=== PATIENT | female | born 1940 | race Caucasian/White ===

== ENCOUNTER → 2022-03-02 15:35 | Outpatient (CLI) | payer MEDICARE, SELFPAY ==
--- NOTE | 2022-03-02 | DI.RAD_ITS ---
Exam(s) XR SACROILIAC JOINTS EXAM: XR SACROILIAC JOINTS CLINICAL HISTORY: RIGHT SACROILIAC JOINT PAIN--M53.3. TECHNIQUE: 2D digital imaging was performed. COMPARISON: No exams were available for comparison FINDINGS: 3 views No evidence of obvious sacral fracture. Sacroiliac joints appear unremarkable. No radiographic evid ence of sacroiliitis nor ankylosis of the SI joints. Visualized hips appear unremarkable. IMPRESSION: Unremarkable appearing sacroiliac joints. DATA REPOSITORY: RADIATION DOSE DELIVERED:
== END ==
PROVIDERS: PCP Internal Medicine; Visit Provider Family Medicine
DX: M53.3 Sacrococcygeal disorders, not elsewhere classified (principal)
CPT/HCPCS: 72202

== ENCOUNTER 2022-04-16 01:13 | Outpatient (RCR) | payer MEDICARE, SELFPAY ==
--- OUTSIDE RECORDS SUMMARY | 2022-04-16 01:17 | XMS_ITS | Encounter Summary ---
:1940 Author Organization [facility] Address [address] [place] [address] Care Team Providers Name Role Phone Hayde Swan MD Primary Care Provider Encounter Details Date Type Department Care Team Description 03/06/2012 Results Only [facility] Yeison Olguin MD Laboratory Services - [address] [place] [address] [address] [place] [address] [phone] Social History Tobacco Use Types Packs/Day Years Used Date Never Assessed Sex Assigned at Date Recorded Not on file documented as of this encounter Plan of Treatment Not on filedocumented as of this encounter Procedures Procedure Name Priority Date/Time Associated Diagnosis Comme nts SURGICAL PATHOLOGY Routine 03/06/2012 0:00 EDT Re sults for this procedure are i n the results section. documented in this encounter Results SURGICAL PATHOLOGY (03/06/2012 0:00 EDT) Pathology Report: SURGICAL PATHOLOGY REPORT [facility] Reports generated via electronic interface contain maurice ginal data; LAB however they are lacking the format of the original re port. Caution should be taken when reading/interpreting unfo rmatted reports. Name: ? SALLIE HENLEY ? Accession #: ? [id number] ? : ? 1940 (Age: 71) ??F ? Collect Date: ? 03/06/2012 ? Location: ? [facility] ? Receive Date: ? 012 ? Provider: YEISON OLGUIN MD Copy to: HAYDE SWAN MD ? Final Pathologic Diagnosis: ? Ileocecal valve, biopsy: 1. ?Fragment of sessile serrated adenoma (one piece). 2. ? Colonic mucosa with surface hyperplastic gonzalez ge (two pieces. Document reviewed and electronically signed by: Debbie Castañeda MD Report ??Date: 03/08/2012 14:06 By the signature above, the attending physician certif ies that he/she has personally conducted a gross and/or microscopic examin ation of the described specimens and rendered or confirmed the above diagnosi s. Specimen(s) Received: ? polyp ileocecal valve Clinical History: ? Colorectal screen Gross Description: ? Received in formalin labelled Karishma Henley and ? polyp ileocecal valve are three pink-messina ir regular soft tissues ranging from 0.1 x 0.1 x 0.1 cm to 0.3 x 0.2 x 0.2 cm. ??Submitted in toto in a single cassette. ??(Emiliano Patel)/jaent End of Report Specimen Performing Organization Address City/State/ZIP Code Phon e Number [facility] [address] [place] [address] SERVICES [facility] [address] [place] [address] documented in this encounter Visit Diagnoses Not on filedocumented in this encounter Care Teams Backup Sawyer Relationship Specialty Start Date End Date Hayde Swan MD PCP - General 03/06/[address] [phone] documented as of this encounter
--- OUTSIDE RECORDS SUMMARY | 2022-04-16 01:17 | XMS_ITS | Encounter Summary ---
:1940 Author Organization [facility] Address [address] [place] [address] Care Team Providers Name Role Phone Unavailable Primary Care Provider Unavailable Encounter Details Date Type Department Care Team Description 08/03/1999 Results Only [facility] - Hayde Harper MD conversion [address] [place] [phone] (Wo rk) Social History Tobacco Use Types Packs/Day Years Used Date Never Assessed Sex Assigned at Date Recorded Not on file documented as of this encounter Plan of Treatment Not on filedocumented as of this encounter Procedures Procedure Name Priority Date/Time Associated Diagnosis Comme [facility] CYTOPATHOLOGY Routine 08/03/1999 11:36 EST Result s for this procedure are i n the results section . documented in this encounter Results CYTOPATHOLOGY (08/03/1999 11:36 EST) Pathology Report: CYTOPATHOLOGY REPORT [facility] Reports generated via electronic interface contain maurice ginal data; however they are lacking the format of the original re port. Caution should be taken when reading/interpreting unfo rmatted reports. Name: ? MILLI HENLEY ? Accession #: ? [id number] : ? 1940 (Age: 59) ??F ?Collect Date: ? 07/15 Location: ?Receive Date: ? 08/03/1999 Provider: ?HAYDE SAWN MD Copy to: ?HAYDE SWAN MD ? Specimen/Source: ?Pap Smear (One Slide) Last Menstrual Period: ? GYNECOLOGIC ??CYTOPATHOLOG Y ??REPORT Name: CONCEPCIÓNKARISHMA ? FA HC : 1940 ?? 59Y F ?Client ID: [id number] SS#: [id number] ? Ac cession #: [id number] Clinician: HAYDE SWAN MD ?? Location: [facility] ??Copy to: ?? Specimen: ?Pap Smear (One Slide) ? Source: Cervix/Endocervix ?Collected: 07/30/99 ? Received: 08/03/1999 ?LMP: 1983 ? Hormone Therapy: Yes ? : No ? Radiation Therapy: No ?? Post : No ?Chemotherapy: No ?IUD: No ? Prev Abnormal Pap: No ?? Clinical Hx: ?(Blank thornton indicate information not provided on requisition) SPECIMEN ADEQUACY: ? Satisfactory For Evaluation ?? GENERAL CATEGORIZATION: ? BENIGN CELLULAR CHANGES ?? DESCRIPTIVE DIAGNOSIS: ? Reactive Cellular Changes Associated With Infla mmation Present ? (Includes Repair) ? Reviewed And Electronically Signed By: ? Rae saldana M.D. ? Report Date : ?? 08/10/1999 [facility] Archived Tests - Final Diagnosis Text Field: Clinical History : ? Document reviewed and electronically signed by: ? Conversion ? Report Date: ??08/10/1999 00:00 End of Report Specimen Performing Organization Address City/State/ZIP Code Phon e Number [facility] [address] [place] [address] SERVICES [facility] [address] [place] [address] documented in this encounter Visit Diagnoses Not on filedocumented in this encounter
--- OUTSIDE RECORDS SUMMARY | 2022-04-16 01:17 | XMS_ITS | Encounter Summary ---
:1940 Author Organization [facility] Address [address] [place] [address] Care Team Providers Name Role Phone Unavailable Primary Care Provider Unavailable Encounter Details Date Type Department Care Team Description 08/29/2000 Results Only [facility] - Hayde Harper MD conversion [address] [place] [phone] (Wo rk) Social History Tobacco Use Types Packs/Day Years Used Date Never Assessed Sex Assigned at Date Recorded Not on file documented as of this encounter Plan of Treatment Not on filedocumented as of this encounter Procedures Procedure Name Priority Date/Time Associated Diagnosis Comme [facility] CYTOPATHOLOGY Routine 08/29/2000 0:00 EST Results for this procedure are i n the results section . documented in this encounter Results CYTOPATHOLOGY (08/29/2000 0:00 EST) Pathology Report: CYTOPATHOLOGY REPORT [facility] Reports generated via electronic interface contain maurice ginal data; however they are lacking the format of the original re port. Caution should be taken when reading/interpreting unfo rmatted reports. Name: ? MILLI HENLEY ? Accession #: ? [id number] : ? 1940 (Age: 60) ??F ?Collect Date: ? 08/11 Location: ? [facility] ? Receive Date : ? 08/31/2000 Provider: ?HAYDE SWAN MD Copy to: ? Specimen/Source: ?Conventional Pap Test, Cer vix/Endocervix Last Menstrual Period: ? 1985 Hormonal/Contraceptive Status: ? Prempro ? SPECIMEN ADEQUACY ? Satisfactory for evaluation. GENERAL CATEGORIZATION ? Benign Cellular Changes DESCRIPTIVE DIAGNOSIS ? Reactive cellular star nges associated with inflammation present (includes repair). ? Document reviewed and electronically signed by: ? SCOTT HICKS MD [facility] ? Report Date: ??09/02/2000 16:46 End of Report Specimen Performing Organization Address City/State/ZIP Code Phon e Number [facility] [address] [place] [address] SERVICES [facility] [address] [place] [address] documented in this encounter Visit Diagnoses Not on filedocumented in this encounter
--- OUTSIDE RECORDS SUMMARY | 2022-04-16 01:17 | XMS_ITS | Encounter Summary ---
:1940 Author Organization [facility] Address [address] [place] [address] Care Team Providers Name Role Phone Unavailable Primary Care Provider Unavailable Encounter Details Date Type Department Care Team Description 12/28/2001 Results Only [facility] - Hayde Harper MD conversion [address] [place] [phone] (Wo rk) Social History Tobacco Use Types Packs/Day Years Used Date Never Assessed Sex Assigned at Date Recorded Not on file documented as of this encounter Plan of Treatment Not on filedocumented as of this encounter Procedures Procedure Name Priority Date/Time Associated Diagnosis Comme [facility] SURGICAL PATHOLOGY Routine 12/28/2001 0:00 EDT Re sults for this procedure are i n the results section. documented in this encounter Results SURGICAL PATHOLOGY (12/28/2001 0:00 EDT) Pathology Report: SURGICAL PATHOLOGY REPORT [facility] Reports generated via electronic interface contain maurice ginal data; LAB however they are lacking the format of the original re port. Caution should be taken when reading/interpreting unfo rmatted reports. Name: ? MILLI HENLEY ? Accession #: ? [id number] ? : ? 1940 (Age: 61) ??F ? Collect Date: ? 12/28/2001 ? Location: ? [facility] ? Receive Date: ? 002 ? Provider: HAYDE SWAN MD Copy to: SHELLEY MCLAIN MD ? Final Pathologic Diagnosis: ? Endometrium, biopsy: 1. ?Detached, s uperficial strips of inactive endometrium with tubal metaplasia. 2. ?Scant fragments of benign endocervica l glands. Document reviewed and electronically signed by: SHELLEY MCLAIN MD Report ??Date: 01/03/2002 15:59 By the signature above, the attending physician certif ies that he/she has personally conducted a gross and/or microscopic examin ation of the described specimens and rendered or confirmed the above diagnosi s. Specimen(s) Received: ? Endometrial bx Clinical History: ? Postmenopausal spotting; on HRT cyclic Gross Description: ? Received in formalin labelled Ducham and endometrial biopsy is 1.5 cc of blood tinged mucous admix ed with fragments of red-brown tissue. ??The specimen is submitted entirely in one cassette. ??(ALBERTO Palma/janet End of Report Specimen Performing Organization Address City/State/ZIP Code Phon e Number [facility] [address] [place] [address] SERVICES [facility] [address] [place] [address] documented in this encounter Visit Diagnoses Not on filedocumented in this encounter
--- OUTSIDE RECORDS SUMMARY | 2022-04-16 01:17 | XMS_ITS | Encounter Summary ---
:1940 Author Organization [facility] Address [address] [place] [address] Care Team Providers Name Role Phone Unavailable Primary Care Provider Unavailable Encounter Details Date Type Department Care Team Description 05/02/2003 Results Only [facility] [place], [employer] conversion [address] [facility] [address] [place] [phone] (Wo rk) Social History Tobacco Use Types Packs/Day Years Used Date Never Assessed Sex Assigned at Date Recorded Not on file documented as of this encounter Plan of Treatment Not on filedocumented as of this encounter Procedures Procedure Name Priority Date/Time Associated Diagnosis Comme [facility] CYTOPATHOLOGY Routine 05/02/2003 0:00 EST Results for this procedure are i n the results section . documented in this encounter Results CYTOPATHOLOGY (05/02/2003 0:00 EST) Pathology Report: CYTOPATHOLOGY REPORT [facility] Reports generated via electronic interface contain maurice ginal data; however they are lacking the format of the original re port. Caution should be taken when reading/interpreting unfo rmatted reports. Name: ? MILLI HENLEY ? Accession #: ? [id number] : ? 1940 (Age: 62) ??F ?Collect Date: ? 04/14 Location: ? [facility] ? Receive Date : ? 05/06/2003 Provider: ?SIMONA MOYA [employer]DER Copy to: ? Specimen/Source: ?ThinPrep Pap Test, Cervix/ Endocervix Last Menstrual Period: ? Menstrual/ Status: ? Post Menopausal Treatment History: ? Miscellaneous treatment: Endometrial bx, post menopaus al bleeding Other: ? HPVA - HPV testing requested if ASC-US on the current ThinPrep Pap test. ? SPECIMEN ADEQUACY ? Satisfactory for Evaluation - transformation zone component present GENERAL CATEGORIZATION ? Negative for Intraepithelial Lesion or Malignan cy ? Document reviewed and electronically signed by: ? KIRIT Melgoza(ASCP) ? Report Date: ??05/10/2003 12:59 End of Report Specimen Performing Organization Address City/State/ZIP Code Phon e Number [facility] [address] [place] [address] SERVICES [facility] [address] [place] [address] documented in this encounter Visit Diagnoses Not on filedocumented in this encounter
--- OUTSIDE RECORDS SUMMARY | 2022-04-16 01:17 | XMS_ITS | Encounter Summary ---
:1940 Author Organization [facility] Address [address] [place] [address] Care Team Providers Name Role Phone Unavailable Primary Care Provider Unavailable Encounter Details Date Type Department Care Team Description 11/16/2001 Results Only [facility] - Hayde Harper MD conversion [address] [place] [phone] (Wo rk) Social History Tobacco Use Types Packs/Day Years Used Date Never Assessed Sex Assigned at Date Recorded Not on file documented as of this encounter Plan of Treatment Not on filedocumented as of this encounter Procedures Procedure Name Priority Date/Time Associated Diagnosis Comme [facility] CYTOPATHOLOGY Routine 11/16/2001 0:00 EDT Results for this procedure are i n the results section . documented in this encounter Results CYTOPATHOLOGY (11/16/2001 0:00 EDT) Pathology Report: CYTOPATHOLOGY REPORT [facility] Reports generated via electronic interface contain maurice ginal data; however they are lacking the format of the original re port. Caution should be taken when reading/interpreting unfo rmatted reports. Name: ? MILLI HENLEY ? Accession #: ? [id number] : ? 1940 (Age: 61) ??F ?Collect Date: ? 06/11/2001 Location: ? [facility] ? Receive Date : ? 11/20/2001 Provider: ?HAYDE SWAN MD Copy to: ? Specimen/Source: ?Conventional Pap Test, Cer vix/Endocervix Last Menstrual Period: ? 1983 Hormonal/Contraceptive Status: ? Prempro ? SPECIMEN ADEQUACY ? Satisfactory for Evaluation - transformation zone component present - air drying artifact/cellular degeneration - obscuring inflammation GENERAL CATEGORIZATION ? Negative for Intraepithelial Lesion or Malignan cy ? Document reviewed and electronically signed by: ? Eleonora Sainz, SCT(ASCP) ? Report Date: ??11/21/2001 22:14 End of Report Specimen Performing Organization Address City/State/ZIP Code Phon e Number [facility] [address] [place] [address] SERVICES [facility] [address] [place] [address] documented in this encounter Visit Diagnoses Not on filedocumented in this encounter
[2022-04-16] MEDS: Denosumab 60 MG/ML SYR SC (10:01)
== END 2022-05-12 23:59 | disposition home or self-care (01) ==
LOC: INF 01:13
PROVIDERS: PCP Family Medicine; Visit Provider Nurse Practitioner Acute Care
DX: M81.0 Age-related osteoporosis without current pathological fracture (principal)
CPT/HCPCS: 96372; J0897

== ENCOUNTER 2022-05-11 18:40 | Outpatient (REF) | payer MEDICARE, SELFPAY ==
[2022-05-11 18:58] LABS: CREATININE 0.8 mg/dL (0.55-1.02); Estimated GFR 73.98 (mL/min/1.73m2)
== END 2022-05-11 18:41 | disposition home or self-care (01) ==
LOC: NCHCN 18:40
PROVIDERS: PCP Family Medicine; Visit Provider Family Medicine
DX: Z00.00 Encounter for general adult medical examination without abnormal findings (principal)
CPT/HCPCS: 82565

== ENCOUNTER 2022-11-15 15:56 | Outpatient (REF) | payer MEDICARE, SELFPAY ==
[2022-11-15 16:23] LABS: Hemoglobin A1C 6.1 % (<5.7)
== END 2022-11-15 15:57 | disposition home or self-care (01) ==
LOC: NCHCN 15:56
PROVIDERS: PCP Family Medicine; Visit Provider Family Medicine
DX: R73.03 Prediabetes (principal)
CPT/HCPCS: 83036

== ENCOUNTER 2023-10-31 05:20 | Outpatient (RCR) | payer MEDICARE, SELFPAY ==
[2023-10-31] MEDS: Denosumab 60 MG/ML SYR SC (11:29)
== END 2023-11-11 23:59 | disposition home or self-care (01) ==
LOC: INF 05:20
PROVIDERS: PCP Family Medicine; Visit Provider Nurse Practitioner Family
DX: M81.0 Age-related osteoporosis without current pathological fracture (principal)
CPT/HCPCS: 96372; J0897

== ENCOUNTER 2023-11-16 07:31 | Emergency (ER) | payer MEDICARE, SELFPAY ==
[2023-11-16] VITALS (128 sets, daily range): BP systolic 120–213; BP diastolic 49–95; PULSE 45–97; RESP 8–31; TEMP 36.6; O2SAT 94–100
--- NOTE | 2023-11-16 07:30 | RT.EKG_ITS ---
APPROVED REPORT Exam: Resting ECG Reason for Exam: chest pain Patient Location: E HR:84 bpm ECG Measurements Heart Rate 84 AXIS TX 177 P 114 QRSd 100 QRS 87 QT 380 T 28 QTc 449 Conclusion Sinus rhythm...normal P axis, V-rate 60- 99 Left atrial enlargement...P, P'>60mS, <-0.15mV V1
--- NOTE | 2023-11-16 07:56 | ED.GENADUL_ITS ---
Discharge Plan Disposition Specific Acute Inpt Facility: [facility] Condition: Stable Discharge Details Chief Complaint: Chest Pain Clinical Impression: Chest pain Primary Care Provider: Hadye Kern ED Provider: Samuel Peralta Home Meds and New Rx's Prescriptions: No Action aspirin 81 mg tablet,delayed release (DR/EC) 81 mg PO DAILY Patient Comments: TAKE 1 TABLET BY MOUTH EVERY DAY rosuvastatin 10 mg tablet 10 mg PO DAILY Patient Comments: TAKE 1 TABLET BY MOUTH EVERY DAY calcium 500 mg tablet 1,300 mg PO DAILY azelastine 137 mcg (0.1 %) aerosol,spray 2 spray INTRANASAL BID Patient Comments: USE 1 TO 2 SPRAYS IN EACH NOSTRIL TWICE DAILY cholecalciferol (vitamin D3) [Vitamin D3] 25 mcg (1,000 unit) tablet 1,000 unit PO DAILY polyethylene glycol 3350 [ClearLax] 17 gram powder in packet 17 g PO DAILY PRN HPI General Mode of arrival: ambulatory . Date/Time Provider Initiated Documentation: 11/16/23 07:31 . Limitations to Documentation: no limitations . Information obtained by: patient . History of Present Illness 83 year old F presents to the emergency department with the chief complaint of chest pain, described as moderate, and is localized to the chest. Patient reports no radiation. and it has been constant. No relieving factors improve symptom(s), No exacerbating factors reported . Patient notes denies fever/chills. Patient did receive the following treatments prior to arrival, none Related Data Home Medications Medication Instructions Recorded Confirmed aspirin 81 mg tablet,delayed 81 mg PO DAILY 11/16/23 11/16/23 release azelastine 137 mcg (0.1 %) nasal 2 spray intranasal BID 11/16/23 11/16/23 spray aerosol calcium 500 mg tablet 1,300 mg PO DAILY 11/16/23 11/16/23 cholecalciferol (vitamin D3) 25 1,000 unit PO DAILY 11/16/23 11/16/23 mcg (1,000 unit) tablet (Vitamin D3) polyethylene glycol 3350 17 gram 17 g PO DAILY PRN 11/16/23 11/16/23 oral powder packet (ClearLax) rosuvastatin 10 mg tablet 10 mg PO DAILY 11/16/23 11/16/23 Allergies Allergy/AdvReac Type Severity Reaction Status Date / Time Sulfa (Sulfonamide Allergy Mild Other (See Verified 11/16/23 07:40 Antibiotics) Comment) General Stated Complaint: Chest Pain HELENE: 2 Review of Systems All systems reviewed & are unremarkable except as noted in HPI and below Constitutional Constitutional: Denies chills, Denies fever(s) and Denies weakness Cardiovascular Cardiovascular: Reports chest pain and Denies dyspnea Respiratory Respiratory: Denies cough and Denies dyspnea Gastrointestinal Gastrointestinal: Denies abdominal pain, Denies nausea and Denies vomiting Musculoskeletal Musculoskeletal: Denies joint swelling Neurologic Neurologic: Denies weakness Exam Const General: no acute distress Orientation: alert HENMT Head: normal to inspection Ears: external ears normal General nose exam: external nose normal Mouth: moist mucous membranes Eyes General: appearance normal, both eyes and all related structures Neck Neck: normal visual inspection Resp Effort & Inspection: normal respiratory effort and able to speak in complete sentences Auscultation: clear to auscultation bilaterally Cardio Jugular venous pressure: no JVD Rate: regular rate Heart Sounds: murmur (systolic best heard at the right sternal border) GI Palpation: soft and nontender Skin General skin exam: no rashes or lesions noted Neuro General: patient alert and patient oriented x3 Extrem General: normal to inspection Psych Mental Status: mental status grossly normal Course Vital Signs Vital signs: Vital Signs Pulse 97 H 11/16/23 07:34 Respiratory Rate 18 11/16/23 07:34 Blood Pressure 201/90 H 11/16/23 07:34 Pulse Oximetry 98 11/16/23 07:34 Pulse 97 H 11/16/23 07:34 Respiratory Rate 18 11/16/23 07:38 Respiratory Effort Normal 11/16/23 07:38 Respiratory Depth Normal 11/16/23 07:38 Respiratory Pattern Normal 11/16/23 07:38 Blood Pressure 201/90 H 11/16/23 07:34 Blood Pressure Position Sitting 11/16/23 07:34 Pulse Oximetry 98 11/16/23 07:34 Oxygen Delivery Method Room Air 11/16/23 07:34 Oxygen Flow Rate 0 11/16/23 07:34 Pain Level 2 11/16/23 07:34 Lab/Test Results Lab/Test Results: Laboratory Tests Range/Units 11/16/23 07:38 APTT Cancelled Medical Decision Making 83-year-old female with a history of hyperlipidemia, comes in with intermittent chest pressure with exertion. She states he had [place] in the summer, and was living in [place] over the winter. She had a stress test done there which showed a moderate reversible distal apical defect suggestive of ischemia, patient has a report with her. She says she was was to have a catheterization in October but had a in the family. 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 She says since being here last 2 weeks she has had intermittent chest pain with exertion. No fevers, no cough, otherwise feels well. She is currently pain- free. Unremarkable exam. Will check a CBC, CMP, troponin, chest x-ray. She has no tearing back pain to suggest dissection, no hypoxia or significant tachycardia and no evidence of DVT on exam to suggest PE. She was also noted to be hypertensive to 200 systolic, no ischemic symptoms will treat with a dose of metoprolol Patient still asymptomatic, labs unremarkable, chest x-ray unremarkable. Will consult with cardiology at [facility] Patient stable and asymptomatic. Spoke with NI Rockwell for the cardiology unit who reviewed the case and recommended increasing aspirin to 243. Given she is asymptomatic do not recommend anticoagulation with heparin or Plavix at this point. They have excepted to their facility for diagnostic catheterization. Accepting provider is Dr. Everton Magallon patient stable and continues to have no symptoms, blood pressure now 140/68. Did confirm with department that they do anticipate her being able to be transferred today but might not be till this evening. Differential Diagnosis Differential Diagnosis: Unstable angina, anxiety, chest wall pain. Medical Records Medical records reviewed: Yes I reviewed the patient's medical records. Imaging Data Radiologic Study: Attestation: I personally reviewed and interpreted this imaging study as follows: Imaging: X-Ray Radiologist's impression: no acute findings Lab Data Lab results reviewed: Yes I reviewed the patient's lab results. ECG Data Attestation: I personally reviewed and interpreted this ECG (s) as follows: Prior ECG tracings: not available for review Interpretation: Sinus rhythm, rate of 84, PA 177 no STEMI ACS Quality:SDOH Health Related Social Needs: No Data to Display PFSH All Active Problems (Updated 11/16/23 @ 11:07 by Samuel Peralta MD) Chest pain (Acute) Social History Smoking/Tobacco Use Status: Never Smoking risk assessment performed?: Yes Alcohol Intake: current Drug use: Never Substance use type: does not use PAWSS Have you Been Recently Intoxicated or Drunk Within the Last 30 days?: No Have you Ever Experienced Previous Episodes of Alcohol Withdrawal?: No Have you ever Experienced Withdrawal Seizures?: No Have you ever Experienced Delirium Tremens(DT)s?: No Have you ever undergone Alcohol Rehabilitation Treatment (i.e, inpt ot outpatient treatment programs)?: No Have you ever Experienced Blackouts?: No Have you ever Combined Alcohol with other Downers within the last 90 days?: No Have you ever Combined Alcohol with any other Substance of Abuse during the last 90 days?: No Result: 0
[2023-11-16 07:59] LABS: Abs Immature Grans 0.02 10^3/uL (0.0-0.06); Absolute Basophil Count 0.02 10^3/uL (0.0-0.2); Absolute Eosinophil Count 0.05 10^3/uL (0.0-0.7); Absolute Lymphocyte Count 1.74 10^3/uL (1.2-3.4); Absolute Monocyte Count 0.45 10^3/uL (0.1-0.8); Absolute Neutrophil Count 4.35 10^3/uL (1.2-6.7); Basophils % 0.3 %; Eosinophils % 0.8 %; HCT 43.6 % (36.0-46.0); HGB 14.2 g/dL (11.2-15.7); Immature Grans % 0.3 %; Lymphocytes % 26.2 %; MCH 30.1 pg (27.0-33.0); MCHC 32.6 % (32.0-36.0); MCV 93 fL (80-95); MPV 10.2 fL (8.0-11.0); Monocytes % 6.8 %; Neutrophils % 65.6 %; Platelet Count 219 10^3/uL (130-400); RBC 4.71 10^6/uL (3.93-5.22); RDW 13.2 % (11.7-14.6); RDW-SD 45.2 fL; WBC 6.63 10^3/uL (4.4-10.8)
[2023-11-16 08:18] LABS: ALT 25 U/L (14-59); AST 20 U/L (15-37); Albumin 4.2 g/dL (3.4-5.0); Alkaline Phosphatase 66 U/L (46-116); Anion Gap 8.9 mmol/L (3-11); BUN 15 mg/dL (7-18); Bilirubin, Total 0.6 mg/dL (0.2-1.0); CO2 29.1 mmol/L (21.0-32.0); CREATININE 0.9 mg/dL (0.55-1.02); Calcium 9.1 mg/dL (8.5-10.1); Chloride 105 mmol/L (98-107); Estimated GFR 63.43 (mL/min/1.73m2); Glucose 142 mg/dL (74-106); Lipase 35 U/L (16-77); Potassium 3.9 mmol/L (3.5-5.1); Sodium 143 mmol/L (136-145); Total Protein 7.8 g/dL (6.4-8.2); Troponin I < 50 ng/L (< or =60)
--- NOTE | 2023-11-16 08:22 | DI.RAD_ITS ---
Exam(s) XR PORTABLE CHEST AP EXAM: XR PORTABLE CHEST AP CLINICAL HISTORY: chest pain TECHNIQUE: 2D digital imaging was performed of the chest. One image was obtained. An AP view was ob tained. COMPARISON: No exams were available for comparison FINDINGS: MEDIASTINUM: Normal. HEART: Normal. PULMONARY VASCULATURE: Normal. LUNGS: Clear. PLEURAL SPACE: No pleural effusion or pneumothorax. BONE:Within normal limits for the patient's age. OTHER FINDINGS:Normal. IMPRESSION: No acute pulmonary findings. DATA REPOSITORY: RADIATION DOSE DELIVERED:
[2023-11-16 08:25] LABS: PTT Activated 24.4 sec (23.6-32.8); Prothrombin Time 10.1 sec (9.1-11.1)
[2023-11-16] MEDS: Metoprolol 25 MG TAB PO (08:44)
[2023-11-16] MEDS: Lisinopril 5 MG TAB PO (10:20)
[2023-11-16] MEDS: Normal Saline Flush 10 ML SYR IVP (10:34)
[2023-11-16 11:01] LABS: Troponin I < 50 ng/L (< or =60)
[2023-11-16] MEDS: Aspirin 81 MG CHEW (11:07)
== END 2023-11-16 20:10 | disposition home or self-care (01) ==
PROVIDERS: Emergency Medicine; Emergency Provider Emergency Medicine; PCP Family Medicine
DX: R07.9 Chest pain, unspecified (principal); E78.5 Hyperlipidemia, unspecified; Z79.82 Long term (current) use of aspirin
CPT/HCPCS: 36415; 80053; 83690; 93005; 99285; 71045; 83735; 84484; 85025; 85610; 85730; 93010

== ENCOUNTER 2023-11-28 09:51 | Emergency (ER) | payer MEDICARE, SELFPAY ==
[2023-11-28 09:55] VITALS: BP 155/60; PULSE 80; TEMP 36.8; O2SAT 96
--- NOTE | 2023-11-28 10:00 | DI.US_ITS ---
Exam(s) US SOFT TISSUE EXTREMITY EXAM: US SOFT TISSUE EXTREMITY CLINICAL HISTORY: ?hematoma vs pseudoaneurysm. TECHNIQUE: Ultrasound was performed using standard protocol. COMPARISON: No exams were available for comparison FINDINGS: Sonographic assessment utilizing grayscale and color Doppler imaging was performed and targeted to th e area of clinical concern. There is a circumscribed collection corresponding to the palpable abnormality at the distal wrist. T here is no vascular flow within it. Findings are consistent with a hematoma. Measures 4.8 x 0.6 x 2 .1 cm. IMPRESSION: 4.8 centimeter maximal dimension hematoma at the distal wrist. Findings called to Dr. Peralta of the emergency department. DATA REPOSITORY:
--- NOTE | 2023-11-28 10:06 | ED.GENADUL_ITS ---
Discharge Plan Disposition Patient Disposition: Home Condition: Stable Discharge Details Clinical Impression: Hematoma Primary Care Provider: Hayde Kern ED Provider: Samuel Peralta Home Meds and New Rx's Prescriptions: Continued aspirin 81 mg tablet,delayed release (DR/EC) 81 mg PO DAILY Patient Comments: TAKE 1 TABLET BY MOUTH EVERY DAY rosuvastatin 10 mg tablet 10 mg PO DAILY Patient Comments: TAKE 1 TABLET BY MOUTH EVERY DAY calcium 500 mg tablet 1,300 mg PO DAILY azelastine 137 mcg (0.1 %) aerosol,spray 2 spray INTRANASAL BID Patient Comments: USE 1 TO 2 SPRAYS IN EACH NOSTRIL TWICE DAILY cholecalciferol (vitamin D3) [Vitamin D3] 25 mcg (1,000 unit) tablet 1,000 unit PO DAILY polyethylene glycol 3350 [ClearLax] 17 gram powder in packet 17 g PO DAILY PRN losartan 50 mg tablet 37 mg PO DAILY Patient Comments: TAKE 1 TABLET BY MOUTH EVERY DAY amlodipine 2.5 mg tablet 2.5 mg PO DAILY Discharge Instructions Additional Instructions: Your ultrasound did not show any evidence of a pseudoaneurysm. Use the compression wrap until hematoma is resolved. Follow-up as scheduled with your cardiology team If you feel more ill or have severe worsening pain or any symptoms of high fevers return to the emergency department for reevaluation HPI General Mode of arrival: ambulatory . Date/Time Provider Initiated Documentation: 11/28/23 09:53 . Limitations to Documentation: no limitations . Information obtained by: patient . History of Present Illness 83 year old F presents to the emergency department with the chief complaint of Right wrist swelling, described as mild, Patient started experiencing this week(s) (1) and it has been constant. No relieving factors improve symptom(s), No exacerbating factors reported . Patient notes no other symptoms.. Patient did receive the following treatments prior to arrival, none Related Data Home Medications Medication Instructions Recorded Confirmed aspirin 81 mg tablet,delayed 81 mg PO DAILY 11/16/23 11/28/23 release azelastine 137 mcg (0.1 %) nasal 2 spray intranasal BID 11/16/23 11/28/23 spray aerosol calcium 500 mg tablet 1,300 mg PO DAILY 11/16/23 11/28/23 cholecalciferol (vitamin D3) 25 1,000 unit PO DAILY 11/16/23 11/28/23 mcg (1,000 unit) tablet (Vitamin D3) polyethylene glycol 3350 17 gram 17 g PO DAILY PRN 11/16/23 11/28/23 oral powder packet (ClearLax) rosuvastatin 10 mg tablet 10 mg PO DAILY 11/16/23 11/28/23 amlodipine 2.5 mg tablet 2.5 mg PO DAILY 11/28/23 11/28/23 losartan 50 mg tablet 37 mg PO DAILY 11/28/23 11/28/23 Allergies Allergy/AdvReac Type Severity Reaction Status Date / Time Sulfa (Sulfonamide Allergy Mild Other (See Verified 11/28/23 09:57 Antibiotics) Comment) General Stated Complaint: Vascular HELENE: 3 Review of Systems All systems reviewed & are unremarkable except as noted in HPI and below Constitutional Constitutional: Denies chills, Denies fever(s) and Denies weakness Cardiovascular Cardiovascular: Denies chest pain and Denies dyspnea Respiratory Respiratory: Denies cough and Denies dyspnea Gastrointestinal Gastrointestinal: Denies abdominal pain, Denies nausea and Denies vomiting Neurologic Neurologic: Denies weakness Exam Const General: no acute distress Orientation: alert HENSD Head: normal to inspection Ears: external ears normal General nose exam: external nose normal Mouth: moist mucous membranes Eyes General: appearance normal, both eyes and all related structures Neck Neck: normal visual inspection Resp Effort & Inspection: normal respiratory effort and able to speak in complete sentences Cardio Rate: regular rate Skin General skin exam: no rashes or lesions noted Neuro General: patient alert and patient oriented x3 Extrem General: full ROM and capillary refill normal Psych Mental Status: mental status grossly normal Course Vital Signs Vital signs: Vital Signs Temperature 36.8 C 11/28/23 09:55 Pulse 80 11/28/23 09:55 Blood Pressure 155/60 H 11/28/23 09:55 Pulse Oximetry 96 11/28/23 09:55 Temperature 36.8 C 11/28/23 09:55 Temperature Source Temporal Artery Scan 11/28/23 09:55 Pulse 80 11/28/23 09:55 Respiratory Effort Normal, Non-Labored 11/28/23 10:00 Blood Pressure 155/60 H 11/28/23 09:55 Blood Pressure Position Sitting 11/28/23 09:55 Pulse Oximetry 96 11/28/23 09:55 Oxygen Delivery Method Room Air 11/28/23 09:55 Oxygen Flow Rate 0 11/28/23 09:55 Medical Decision Making 83-year-old female who underwent diagnostic cath last week, comes in with continued right wrist swelling and mild discomfort where they did the insertion site for the cath. Denies any fevers, no drainage from the site. She otherwise feels well. She has a 2 x 3 cm hematoma in the right radial artery just proximal to the wrist, has intact sensation and cap refill. Suspect hematoma versus pseudoaneurysm, will obtain ultrasound to further evaluate Ultrasound shows no evidence of pseudoaneurysm appears to be a simple hematoma. Patient is stable, advised to use compression, she has follow-up with cardiology next week and return precautions given Differential Diagnosis Differential Diagnosis: Hematoma, pseudoaneurysm Medical Records Medical records reviewed: Yes I reviewed the patient's medical records. Imaging Data Radiologic Study: Attestation: I personally reviewed and interpreted this imaging study as follows: Imaging: Ultrasound Radiologist's impression: Phone conversation with Dr. ugarte from radiology no evidence of pseudoaneurysm appears to be simple hematoma Quality:SDOH Health Related Social Needs: Health related social needs risk of homeless PFSH All Active Problems (Updated 11/28/23 @ 10:59 by Samuel Peralta MD) Hematoma (Acute) Chest pain (Acute) Social History Smoking/Tobacco Use Status: Never Smoking risk assessment performed?: Yes Alcohol Intake: current Alcohol Intake frequency: a few times a week Drug use: Never Substance use type: does not use Do you feel safe at home: Yes Do you feel safe in your relationship?: Yes PAWSS Have you Been Recently Intoxicated or Drunk Within the Last 30 days?: No Have you Ever Experienced Previous Episodes of Alcohol Withdrawal?: No Have you ever Experienced Withdrawal Seizures?: No Have you ever Experienced Delirium Tremens(DT)s?: No Have you ever undergone Alcohol Rehabilitation Treatment (i.e, inpt ot outpatient treatment programs)?: No Have you ever Experienced Blackouts?: No Have you ever Combined Alcohol with other Downers within the last 90 days?: No Have you ever Combined Alcohol with any other Substance of Abuse during the last 90 days?: No Positive Blood Alcohol level on Presentation? [PCS.BAL]: No Evidence of Increased Autonomic Activity (i.e. HR>120, tremor, sweating, agitation, nausea)?: No Result: 0
== END 2023-11-28 11:05 | disposition home or self-care (01) ==
PROVIDERS: Emergency Provider Emergency Medicine; PCP Family Medicine
DX: I97.630 Postprocedural hematoma of a circulatory system organ or structure following a cardiac catheterization (principal); Z79.82 Long term (current) use of aspirin
CPT/HCPCS: 76881; 99284

== ENCOUNTER 2023-12-09 09:00 | Outpatient (RCR) | payer MEDICARE, SELFPAY | END 2023-12-11 23:59 | disposition home or self-care (01) | LOC: CR 09:00 | PROVIDERS: PCP Family Medicine; Visit Provider Internal Medicine Cardiovascular Disease | DX: I20.89 Other forms of angina pectoris (principal) | CPT/HCPCS: S9472 ==

== ENCOUNTER 2023-12-14 09:41 | Outpatient (RCR) | payer MEDICARE, SELFPAY | END 2024-01-11 23:59 | disposition home or self-care (01) | LOC: CR 09:41 | PROVIDERS: PCP Family Medicine; Visit Provider Internal Medicine Cardiovascular Disease | DX: I20.89 Other forms of angina pectoris (principal) | CPT/HCPCS: S9472 ==

== ENCOUNTER 2024-03-28 02:10 | Outpatient (CLI) | payer MEDICARE, SELFPAY ==
--- NOTE | 2024-03-28 07:15 | DI.MRI_ITS ---
Exam(s) MR LUMBAR SPINE WO EXAM: MR LUMBAR SPINE WO CLINICAL HISTORY: Severe low back pain,spondylolisthesis of lumbar,spondylosis, m47.816,m43.1. TECHNIQUE: Multiplanar multisequence MRI of the Lumbar spine was performed. COMPARISON: DX DEXA BONE DENSITY WITH FAMILIA from 12/08/2010 MR MRI LUMBAR SPINE from 02/27/2022 CR XR SACROILIAC JOINTS from 03/02/2022 FINDINGS: Bones: The last intervertebral disc space is designated the L5/S1 level for the numbering purpose of this examination. The vertebral body heights are well maintained. There is grade 1 anterolisthesis of L4 on L5. Mild endplate degenerative signal changes are present. There is also grade 1 anterolist hesis of L5 on S1. Degenerative facet arthropathy is seen in the lumbar spine particularly at L4-5 an d L5-S1. Cord: The conus tip ends at the L1 level. There has been no change in appearance of the anterior as pect of the distal spinal cord compared to the prior examination. 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 T12-L1: No disc herniations or bulges are present. No central spinal canal or neural foraminal stenos is. L1-2: No disc herniations or bulges are present. No central spinal canal or neural foraminal stenosis . L2-3: No disc herniations or bulges are present. No central spinal canal or neural foraminal stenosis .Mild degenerative changes of the facets are present. L3-4: No disc herniations or bulges are present. No central spinal canal or neural foraminal stenosis .There mild degenerative changes of the facets present. L4-5: There are degenerative changes of the facets and hypertrophy of the ligamentum flavum. No sign ificant central spinal canal stenosis is seen. There is moderately severe bilateral neural foraminal stenosis. L5-S1: There is a mild left lateral disc protrusion into the left neural foramen causing mild narrowi ng of the left neural foramen. No significant central spinal or right neural foraminal stenosis. Fa cet arthropathy is present. Soft tissues: The visualized SI joints and sacrum are well maintained. The paraspinal soft tissues ar e unremarkable. IMPRESSION: 1. L4-5 and L5-S1 spondylolisthesis. 2. Multilevel degenerative changes in the lumbar spine as described above. 3. Findings at L4-L5 all contribute to cause moderately severe bilateral neural foraminal stenosis. 4. Findings at L5-S1 all contribute to cause left neural foraminal stenosis. DATA REPOSITORY:
== END 2024-03-28 02:30 ==
LOC: DI 02:10
PROVIDERS: PCP Family Medicine; Visit Provider Anesthesiology Pain Medicine
DX: M47.816 Spondylosis without myelopathy or radiculopathy, lumbar region
CPT/HCPCS: 72148

== ENCOUNTER 2024-04-10 12:32 | Outpatient (CLI) | payer MEDICARE, SELFPAY ==
[2024-04-10 12:38] VITALS: BP 121/83; PULSE 63; RESP 20; TEMP 36.7; O2SAT 93
--- NOTE | 2024-04-10 13:06 | PDOC.PAIN ---
Date of service: 04/10/24 Time of Service: 13:28 Pain Managment Procedure Note Procedure Note Procedure Note: Lumbar Transforaminal Epidural Steroid Injection ? Location: RIGHT L4 and L5 ? Pre-procedure Diagnosis: M54.17-Radiculopathy, lumbosacral region M54.16 Radiculopathy, lumbar region ? Post-procedure Diagnosis:? The same as above ? Sedation:? none ? Estimated blood loss:? less than 2 cc ? Surgeon:? Randall Heaton MD Warm ? Procedure Detail:?? The procedure and potential risks were explained to the patient and informed written consent was obtained. The patient was escorted to the procedure room and placed in the prone position. Pillows were utilized for proper positioning and comfort. Time out was performed in the procedure room with nursing staff confirming the patient's identity, procedure to be performed, allergies, and any blood thinning or anti-platelet medications. The patient's lower back was prepped with ChloraPrep and draped in a sterile fashion. Sterile gloves were used, a face mask was worn, and new single dose vials of all medications were used with the top being swabbed with alcohol and given time to dry prior to withdrawal of medication. A right-sided oblique fluoroscopic view was obtained, with visualization of L4-5 but not. Lidocaine 1% was used to anesthetize the skin. The tip of a 22-gauge, Quincke needle was advanced toward the 6 o'clock position of the superior pedicle at the target level.? It was advanced just under the pedicle to the neural foramen L4-5. Correct needle placement was confirmed through review of the fluoroscopy. Next, following negative aspiration, 1cc's of Omnipaque 240 contrast was injected under live fluoroscopy which showed good flow throughout the epidural space and no evidence of vascular flow or flow into adjacent compartments. Next, following negative aspiration, 40 mg of Depo-Medrol and 0.5ml of 0.5% bupivacaine was injected. The needle was gently removed.? The procedure was also performed in the same fashion at L5-S1.? The patient tolerated the procedure well.? Permanent images saved and recorded. Plan:? Follow up prn PAIN: PRE PROCEDURE 09/20 POST PROCEDURE 07/23 COMMENT: repeat or consider interlaminar or SI nj
[2024-04-10 13:08] VITALS: O2SAT 98
[2024-04-10 13:10] VITALS: O2SAT 100
[2024-04-10 13:20] VITALS: O2SAT 100
--- NOTE | 2024-04-10 13:26 | DI.RAD_ITS ---
Exam(s) XR PAIN CLINIC THORACIC SP 2V EXAM: XR PAIN CLINIC THORACIC SP 2V CLINICAL HISTORY: DX: Spinal Stenosis TECHNIQUE: 2D and realtime digital imaging was performed. Radiologist not present. CONTRAST MATERIAL: None. COMPARISON: No exams were available for comparison FINDINGS: Fluoroscopy was provided for pain management therapy. Please refer to procedure report or details. Radiation Exposure Index: Ka,r=8.46 mGy IMPRESSION: As above. RADIATION DOSE DELIVERED:
[2024-04-10] MEDS: Omnipaque 240 MG/ML 50 ML BTL IJ (13:36)
[2024-04-10] MEDS: Bupivacaine 0.5% Pres-Free 10 ML VIAL IJ (13:36)
[2024-04-10] MEDS: Nerve Block Tray 1 EACH MC (13:37)
[2024-04-10] MEDS: methylPREDNISolone ACETATE 40 MG/ML VIAL IJ (13:37)
== END 2024-04-10 12:33 | disposition home or self-care (01) ==
LOC: PC 12:33
PROVIDERS: PCP Family Medicine; Visit Provider Anesthesiology Pain Medicine
DX: M54.50 Low back pain, unspecified (principal); M54.17 Radiculopathy, lumbosacral region; M54.16 Radiculopathy, lumbar region
CPT/HCPCS: 00123; 64483; 64484; 72070; J0665; J1010; Q9967

== ENCOUNTER 2024-11-23 17:40 | Outpatient (REF) | payer MEDICARE, SELFPAY ==
[2024-11-23 21:47] LABS: Hemoglobin A1C 6.7 % (<5.7)
[2024-11-23 22:12] LABS: Folate > 20.0 ng/mL (8.6-20.0); Vitamin B12 657 pg/mL (193-986)
== END 2024-11-23 17:41 | disposition home or self-care (01) ==
LOC: NCHCN 17:40
PROVIDERS: PCP Family Medicine; Visit Provider Family Medicine
DX: R73.03 Prediabetes (principal); G62.9 Polyneuropathy, unspecified
CPT/HCPCS: 82607; 82746; 83036

== ENCOUNTER 2024-12-05 07:43 | Outpatient (CLI) | payer MEDICARE, SELFPAY ==
--- NOTE | 2024-12-05 06:00 | DI.RAD_ITS ---
Exam(s) XR PAIN CLINIC LUMBAR SP 2V EXAM: XR PAIN CLINIC LUMBAR SP 2V CLINICAL HISTORY: Dx: Lumbar Radiculopathy. TECHNIQUE: Fluoroscopy was provided for the referring physician for guidance with performing pain clinic injection procedure. COMPARISON: No exams were available for comparison FINDINGS: Please see procedure note for details. Fluoro time: 53.3 seconds RADIATION DOSE DELIVERED: José Miguelr=10.76 mGy
[2024-12-05 08:22] VITALS: BP 109/69; PULSE 58; RESP 20; TEMP 36.5; O2SAT 98
[2024-12-05 08:55] VITALS: PULSE 65
[2024-12-05 08:58] VITALS: BP 167/71; PULSE 61; PULSE 64; RESP 18; O2SAT 98
[2024-12-05 09:00] VITALS: PULSE 60; RESP 16; O2SAT 97
[2024-12-05 09:01] VITALS: BP 178/70; PULSE 60; PULSE 70; RESP 22; O2SAT 97
[2024-12-05 09:13] VITALS: BP 156/62; PULSE 67
[2024-12-05] MEDS: Omnipaque 240 MG/ML 50 ML BTL IJ (09:16)
[2024-12-05] MEDS: Dexamethasone Sod. Phos./Pres-Free 10 MG/ML VIAL IJ (09:16)
[2024-12-05] MEDS: Nerve Block Tray 1 EACH MC (09:18)
--- NOTE | 2024-12-05 10:15 | PDOC.PAIN ---
Date of service: 12/05/24 Time of Service: 09:15 Pain Managment Procedure Note Procedure Note Procedure Note: PROCEDURE NOTE RIGHT L4 TRANSFORAMINAL EPIDURAL STEROID INJECTION Chief Complaint: RIGHT leg pain. Date of Service: December 05, 2024 Patient: Karishma Henley Provider: Triston Sifuentes DO, MPH Karishmajoselyn Henley has been referred to the [facility] for a transforaminal epidural steroid injection. Pre-operative diagnosis: Lumbosacral Radiculopathy ICD-10 M54.17 Post-operative diagnosis: Same Pre-Procedure Pain: VAS= 8/10 Comments: I previously evaluated the patient in our clinic and their symptoms remain the same as they were at that time. Karishma was interviewed and the medical record reviewed. There were no medical, pharmacologic, radiographic or other structural contraindications to attempting a fluoroscopically-guided transforaminal lumbar epidural steroid injection. The risks, benefits, and potential side effects were reviewed with the patient. Risks include, but are not limited to, [id number] headache, infection, bleeding, nerve injury, spinal cord damage, allergic reaction, possible increase in symptoms over the ensuing 24 to 48 hours, paralysis, and . The patient appeared to understand, questions were answered to the patient?s satisfaction and the patient agreed to proceed. Once I obtained informed verbal consent, the printed consent form was signed by the patient and myself. A standard time-out procedure was performed. Karishma was placed in the prone position on the fluoroscopy table and automated blood pressure cuff, three lead EKG, and pulse oximeter were applied. The skin entry point for entering/approaching the Right L4 space for the transforaminal epidural steroid injection was marked. Following thorough chlorhexadine preparation of the skin and draping, 2 ml of 1% lidocaine was infiltrated into the skin over the entry point and subcutaneous tissues. Under fluoroscopic guidance, in ipsilateral oblique view, a co-axial approach using a 3.5 22G spinal needle was advanced to the base of the right L4 pedicle. The needle was advanced to the superio-posterior aspect of the neural foramen under lateral view. Oblique and AP views were rechecked. Under AP and lateral views, 1 ml of Omnipaque-240 was injected while visualized with fluoroscopy. There was no evidence of intravascular or intrathecal uptake, the epidural space was delineated. Next 1.5 ml of preservative-free Dexamethasone (10 mg/ml) was injected after negative aspiration. This was followed by 1 ml of preservative-free 1% lidocaine. (49 mls of Omnipaque-240 was wasted) There was no unusual discomfort expressed by Karishma. The needle was withdrawn without difficulty. Karishma was observed and was without hemodynamic, neurologic, or allergic reactions.? Fluoroscopic images were digitally archived. Karishma's vital signs were stable throughout the procedure and were as recorded in the docflowsheet by the nursing staff.? If given, dosages of intravenous drugs for anxiolysis and analgesia were documented in MAR. Follow up plans and appointments were discussed with Karishma. Post procedure instruction was given as documented in nursing records and having met discharge criteria Karishma was discharged from the [facility]. COMMENTS: Post-procedure pain: VAS= 2/10. Karishma to contact [facility] as needed. If at least 50% improvement in pain and/or function for at least 3 months is achieved, this procedure can be repeated. I personally performed this entire procedure. TRISTON SIFUENTES DO, MPH ABPMR-subspecialty board certification in Pain Medicine [facility] Coding Conscious Sedation used for procedure: No CPT Codes: Transforaminal Lumbar/Sacral (includes fluoro) - 72059 ([id number] ~G) RIght Additional Codes: Date of Service (03620) Date of service: 12/05/24 Diagnoses: Lumbar radiculopathy
== END 2024-12-05 07:44 | disposition home or self-care (01) ==
LOC: PC 07:43
PROVIDERS: PCP Family Medicine; Visit Provider Preventive Medicine Occupational Medicine
DX: M54.50 Low back pain, unspecified (principal); M54.17 Radiculopathy, lumbosacral region
CPT/HCPCS: 64483; 72100; J1100; Q9967

== ENCOUNTER 2024-12-27 00:47 | Outpatient (CLI) | payer MEDICARE, SELFPAY ==
--- NOTE | 2024-12-27 | DI.MAMMO_ITS ---
Exam(s) MAMMO SCREENING EXAM: MAMMO SCREENING CLINICAL HISTORY: SCREENING, Z12.31. TECHNIQUE: Bilateral full field digital CC and MLO mammographic images were obtained with 3D tomosynthesis and utilizing computer aided detection (CAD). COMPARISON: Prior mammograms from [place] were apparently not able to be obtained for comparison purposes. However, the most recent report from mammogram of October 2022 was reviewed (BI-RADS 1) (breast density category C) FINDINGS: The breasts are again noted be heterogeneously dense which may obscure detection of small masses (category C). There are no obvious spiculated masses nor malignant-appearing microcalcification groups. Skin mole is noted over the lateral aspect of the left breast. There is no architectural distortion nor skin thickening-retraction. IMPRESSION: No radiographic evidence of malignancy. BI-RADS Category 1 - Negative Breast Density - Category C - The breast are heterogeneously dense, which may obscure small masses. Breast density Category C or D implies that the patient has dense breast tissue. Dense breast tissue can make it harder to find cancer on a mammogram. Dense breast tissue is also associated with an increased risk of breast cancer. This information about the result of the mammogram report was provided to the patient to raise their awareness. Use this report when you speak with the patient about their risks for breast cancer, which includes their family history. At that time, you may recommend additional screening tests (Ultrasound or MRI) as these tests may add significant information. A negative radiographic report should not delay biopsy if a dominant or clinically suspicious mass is present. Up to ten percent of cancers are not identified on mammography. A negative report may reinforce clinical impression. Adenosis and dense breasts may obscure an underlying neoplasm. False positive reports average 6 to 10%. Patient will receive a letter notifying them of these results.
== END 2024-12-27 01:07 ==
LOC: DI 00:47
PROVIDERS: PCP Family Medicine; Visit Provider Family Medicine
DX: Z12.31 Encounter for screening mammogram for malignant neoplasm of breast (principal); R92.333 Mammographic heterogeneous density, bilateral breasts
CPT/HCPCS: 77063; 77067

== ENCOUNTER 2025-01-17 03:46 | Outpatient (RCR) | payer MEDICARE, SELFPAY ==
[2025-01-17] MEDS: Denosumab 60 MG/ML SYR SC (10:30)
== END 2025-02-10 23:59 | disposition home or self-care (01) ==
LOC: INF 03:46
PROVIDERS: PCP Family Medicine; Visit Provider Family Medicine
DX: M81.0 Age-related osteoporosis without current pathological fracture (principal)
CPT/HCPCS: 96372; J0897

== ENCOUNTER 2025-02-27 15:44 | Outpatient (REF) | payer MEDICARE, SELFPAY ==
[2025-02-27 15:50] LABS: Hemoglobin A1C 6.4 % (<5.7)
== END 2025-02-27 15:45 | disposition home or self-care (01) ==
LOC: NCHCN 15:44
PROVIDERS: PCP Family Medicine; Visit Provider Family Medicine
DX: E11.9 Type 2 diabetes mellitus without complications (principal)
CPT/HCPCS: 83036

== ENCOUNTER 2025-04-03 09:32 | Outpatient (CLI) | payer MEDICARE, SELFPAY ==
--- NOTE | 2025-04-03 06:00 | DI.RAD_ITS ---
Exam(s) XR PAIN CLINIC SACRIOILIAC 2V EXAM: XR PAIN CLINIC SACRIOILIAC 2V CLINICAL HISTORY: DX: Sacroiliac Dysfunction TECHNIQUE: 2D and realtime digital imaging was performed. CONTRAST MATERIAL: Refer to procedure report. COMPARISON: No exams were available for comparison FINDINGS: Fluoroscopy was provided for Dr. Sifuentes during the performance of a right sacroiliac joint injection. Please refer to the procedure report for complete details. Ka,r=1.38 mGy IMPRESSION: RADIATION DOSE DELIVERED: 0.0 0.0 0
[2025-04-03 09:38] VITALS: BP 145/55; PULSE 54; RESP 20; TEMP 37; O2SAT 99
[2025-04-03 10:09] VITALS: PULSE 58; PULSE 60; O2SAT 99
[2025-04-03 10:10] VITALS: BP 185/64; PULSE 58; PULSE 60; RESP 22; O2SAT 97
[2025-04-03 10:11] VITALS: PULSE 61; PULSE 62; RESP 22; O2SAT 98
[2025-04-03 10:16] VITALS: BP 179/69; PULSE 57; PULSE 65; RESP 15; O2SAT 98
--- NOTE | 2025-04-03 10:18 | PDOC.PAIN ---
Date of service: 04/03/25 Time of Service: 10:18 Pain Managment Procedure Note Procedure Note Procedure Note: PROCEDURE NOTE RIGHT INTRA-ARTICULAR SACROILIAC JOINT INJECTION Date of Service: April 03, 2025 Patient: Karishma Henley Provider: Triston Sifuentes DO, MPH COMMENTS: I previously evaluated the patient in the office and their symptoms in relation to the sacroiliac joint pain have remained the same. 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 Karishma was interviewed and the medical record reviewed. There were no medical, pharmacologic, radiographic or other structural contraindications to attempting a fluoroscopically-guided, contrast-enhanced, intra-articular Sacroiliac joint injection. The risks, benefits, and potential side effects of this procedure were reviewed with the patient. Questions and concerns were addressed. After it was clear that Karishma was fully informed about the procedure, the printed consent form was signed by the patient and myself. Karishma was placed in the prone position on the fluoroscopy table and an automated blood pressure cuff, 3 lead EKG, and pulse oximeter were applied. The skin entry point for approaching the Left sacroiliac joint was identified under the most advantageous fluoroscopic view and marked. Following thorough Chlorhexadine preparation of the skin and draping with sterile surgical drapes, 2 mls of 1% lidocaine was infiltrated into the skin at the entry point and the surrounding subcutaneous tissues. Next, a 3.5 22G spinal needle was placed under fluoroscopic guidance into the Right sacroiliac joint. Intra-articular placement was confirmed by a clear arthrogram resulting from the injection of 0.25ml of Omnipaque-240. Next, 2 ml of Depo- Medrol 40 mg/ml was injected intra-articularly with an initial reproduction of a significant component of the usual pain. This was followed with 1 ml of 1% Lidocaine. The needle was then removed without difficulty. (49 ml of Omnipaque-240 was wasted). Karishma's vital signs were stable throughout the procedure and were as recorded in nursing records. Follow up plans and appointments were discussed with Karishma. Post procedure instructions were given as documented in nursing records. Having met discharge criteria, Karishma was [facility] from the [facility]. COMMENTS: Post-procedure pain: VAS= 3/10. If the patient receives at least 50% improvement in pain and/or function for at least 3 months, this procedure can be repeated if needed. I personally performed this entire procedure. TRISTON SIFUENTES DO, MPH ABPMR-subspecialty board certification in Pain Medicine [facility] Coding Conscious Sedation used for procedure: No CPT Codes: SI Joint Inj; incl Fluoro - 86764 ([id number] ~G) Additional Codes: Date of Service () Diagnoses: sacroiliac joint dysfunction
[2025-04-03] MEDS: Nerve Block Tray 1 EACH MC (10:23)
[2025-04-03] MEDS: Omnipaque 240 MG/ML 50 ML BTL IJ (10:23)
[2025-04-03] MEDS: methylPREDNISolone ACETATE 40 MG/ML VIAL IJ (10:24)
== END 2025-04-03 09:33 | disposition home or self-care (01) ==
LOC: PC 09:32
PROVIDERS: PCP Family Medicine; Visit Provider Preventive Medicine Occupational Medicine
DX: M54.50 Low back pain, unspecified (principal); M53.3 Sacrococcygeal disorders, not elsewhere classified
CPT/HCPCS: 27096; 72200; J1010; Q9967